=== PATIENT | female | born 1965 | race Two or more races ===

== ENCOUNTER 2018-03-22 09:35 | Inpatient (IN) | payer MEDICAID ==
[~2018-03-22] VITALS: Ht 144.8 cm; Wt 72.3 kg
[2018-03-22 09:44] VITALS: Ht 144.8 cm; Wt 72.3 kg
[2018-03-22 10:14] LABS: CALCIUM 9.6 mg/dL (8.5-10.1); CARBON DIOXIDE 25.7 mmol/L (21-32); CHLORIDE SERUM 101 mmol/L (98-107); CREATININE SERUM 0.7 mg/dL (0.6-1.0); GFR1 > 60 mL/min; GLUCOSE SERUM 130 mg/dL (74-106); POTASSIUM SERUM 3.7 mmol/L (3.5-5.1); SODIUM SERUM 138 mmol/L (136-145)
[2018-03-22 10:18] LABS: ALKALINE PHOSPHATASE 127 U/L (46-116); ALT/SGPT 46 U/L (14-59); AMYLASE 57 U/L (25-115); AST/SGOT 93 U/L (15-37); BILIRUBIN TOTAL 0.8 mg/dL (0.20-1.00); HDL CHOLESTEROL 49 mg/dL (40-60); LIPASE 126 IU/L (73-393)
[2018-03-22 10:21] LABS: CHOLESTEROL 211 mg/dL (<200)
[2018-03-22 10:23] LABS: BASOPHIL % 0.3 % (0-2); PLATELET COUNT 330 x10^3mcL (130-400); RED CELL DISTRIBUTION WIDTH 13.3 % (11.5-14.5)
[2018-03-22 10:43] LABS: UA SPECIFIC GRAVITY 1.025 (1.005-1.035); microscopic required? YES; urine erythrocyte 2+ (NEGATIVE)
[2018-03-22 13:38] LABS: MAGNESIUM 1.9 mg/dL (1.8-2.4); PHOSPHOROUS 4.3 mg/dL (2.5-4.9)
[2018-03-22 13:44] LABS: CHOLESTEROL/HDL RATIO 4.3
[2018-03-22 13:48] LABS: FREE T4 1.21 ng/dL (0.76-1.46); FREE THYROXINE INDEX 3.4 ug/dL (1.4-4.5)
[2018-03-22 13:56] VITALS: BP 114/66
[2018-03-22 14:07] LABS: T3 TOTAL 1.03 ng/mL
[2018-03-22 18:30] LABS: AMPHETAMINE QUAL UR NONE DETECTED (See below)
[2018-03-22 21:27] VITALS: BP 124/78
[2018-03-23 06:06] VITALS: BP 110/73
[2018-03-23 07:28] LABS: BASOPHIL % 0.9 % (0-2); CALCIUM 8.4 mg/dL (8.5-10.1); CARBON DIOXIDE 26.8 mmol/L (21-32); CHLORIDE SERUM 108 mmol/L (98-107); CREATININE SERUM 0.6 mg/dL (0.6-1.0); GFR1 > 60 mL/min; GLUCOSE SERUM 113 mg/dL (74-106); PHOSPHOROUS 3.4 mg/dL (2.5-4.9); PLATELET COUNT 275 x10^3mcL (130-400); RED CELL DISTRIBUTION WIDTH 13.6 % (11.5-14.5); SODIUM SERUM 141 mmol/L (136-145)
[2018-03-23 09:23] VITALS: BP 133/74
[2018-03-23 13:45] VITALS: BP 132/90
[2018-03-23 16:15] VITALS: BP 132/90
== END 2018-03-23 17:10 | disposition home or self-care (01) ==
LOC: ED 09:35 → DU 12:29
PROVIDERS: Emergency Medicine; Family Medicine
DX: K80.20 Calculus of gallbladder without cholecystitis without obstruction (principal); N17.0 Acute kidney failure with tubular necrosis; E83.51 Hypocalcemia; K76.0 Fatty (change of) liver, not elsewhere classified; R74.0 Nonspecific elevation of levels of transaminase and lactic acid dehydrogenase [LDH]; R80.9 Proteinuria, unspecified; E78.1 Pure hyperglyceridemia; E78.5 Hyperlipidemia, unspecified; E78.00 Pure hypercholesterolemia, unspecified; Z68.28 Body mass index [BMI] 28.0-28.9, adult
CPT/HCPCS: 78226; 83880; 84439; A9537; J0696; J1885; J3010; J3490; J7030; Q0092

== ENCOUNTER 2019-03-29 21:03 | Inpatient (IN) | payer SELFPAY ==
[~2019-03-29] VITALS: Ht 144.8 cm; Wt 71.7 kg
[2019-03-29 21:06] VITALS: Ht 144.8 cm; Wt 71.7 kg
--- NOTE | 2019-03-29 21:30 | NUR ---
PT LYING IN BED, AAOX4 WITH C/O RUQ ABD PAIN, 6/10, X 2 DAYS WITH NAUSEA. PT DENIES ANY V/D/C, RESP ILLNESS, FEVERS, OR URINARY PROBLEMS AT THIS TIME. PER FAMILY AT BEDSIDE, PT HAS A HX OF GALLSTONES AND PT STATES THAT THIS EPISODE IS SIMILAR TO PREVIOUS EPISODES. NO SIGNS OF DISTRESS AT THIS TIME.
--- NOTE | 2019-03-29 22:36 | NUR ---
US TECH AT BEDSIDE FOR EXAM.
[2019-03-29 22:38] LABS: BASOPHIL % 0.7 % (0-2); PLATELET COUNT 327 x10^3mcL (130-400); RED CELL DISTRIBUTION WIDTH 13.4 % (11.5-14.5)
[2019-03-29 22:44] LABS: CALCIUM 9.7 mg/dL (8.5-10.1); CARBON DIOXIDE 26.6 mmol/L (21-32); CHLORIDE SERUM 105 mmol/L (98-107); CREATININE SERUM 0.6 mg/dL (0.6-1.0); GFR1 > 60 mL/min; GLUCOSE SERUM 133 mg/dL (74-106); POTASSIUM SERUM 4.2 mmol/L (3.5-5.1); SODIUM SERUM 142 mmol/L (136-145)
[2019-03-29 22:48] LABS: ALBUMIN 3.6 g/dL (3.4-5.0); ALKALINE PHOSPHATASE 168 U/L (46-116); ALT/SGPT 339 U/L (14-59); AST/SGOT 426 U/L (15-37); BILIRUBIN TOTAL 0.7 mg/dL (0.20-1.00); LIPASE 1166 IU/L (73-393); TOTAL PROTEIN, SERUM 8.2 g/dL (6.4-8.2)
--- NOTE | 2019-03-29 23:30 | NUR ---
PT RESTING IN BED WITH FAMILY AT BEDSIDE.
--- NOTE | 2019-03-29 23:44 | NUR ---
REPORT GIVEN TO CHELI BRASHER.
--- NOTE | 2019-03-29 23:55 | NUR ---
REPORT RECEIVED FROM ALEXA BRASHER THAT PATIENT IS JUST WAITING ON ADMITS ORDER. REPORT WAS ALREADY GIVEN
--- NOTE | 2019-03-30 00:21 | NUR ---
PT TRANSFERED TO [facility] VIA WHEELCHAIR BY JUDY MAHMOOD. PT IN NAD
[2019-03-30 00:35] VITALS: BP 132/65
[2019-03-30 00:38] LABS: CHOLESTEROL/HDL RATIO 4.5; MAGNESIUM 2.1 mg/dL (1.8-2.4); PHOSPHOROUS 3.9 mg/dL (2.5-4.9)
--- NOTE | 2019-03-30 00:43 | NUR ---
RECEIVED FROM ER TRANSPORTED VIA WHEELCHAIR, ACCOMPANIED BY HER DAUGHTER. PT AWAKE AND ALERT, ORIENTED TO NAME, PLACE, TIME AND SITUATION. BREATHING EVEN AND UNLABORED ON ROOM AIR. SALINE LOCK TO LEFT AC, FLUSHED WELL. STATED SOUGHT ADMISSION DUE TO ABD PAIN AND NAUSEA X 2 DAYS. DENIES HAVING NAUSEA OR ABD PAIN AT THIS TIME. ADMISSION HISTORY AND ASSESSMENT DONE. ENDORSED TO NURSE DUTTON
[2019-03-30 00:45] LABS: FREE T4 1.08 ng/dL (0.76-1.46); FREE THYROXINE INDEX 2.7 ug/dL (1.4-4.5); T3 TOTAL 1.17 ng/mL; T4(THYROXINE) 7.7 ug/dL (4.7-13.3)
--- NOTE | 2019-03-30 01:25 | NUR ---
PT ABLE TO AMBULATE TO BATHROOM WITH SLOW STEADY GAIT. URINE COLLECTED AND SENT TO LAB. PT IN NO ACUTE DISTRESS. DAUGHTER AT BEDSIDE. EVEN AND UNLABORED RESPIRATIONS ON RA. IV PATENT AND INTACT RUNNING FLUIDS PER EMAR. NPO EXCEPT MEDS EXPLAINED TO PT. DENIES ANY PAIN AT THIS TIME. BED IN LOWEST POSITION. SIDE RAILS UPX2. CALL LIGHT WITHIN REACH. WILL CONTINUE TO MONITOR.
[2019-03-30 01:56] LABS: microscopic required? YES; urine erythrocyte NEGATIVE (NEGATIVE)
[2019-03-30 02:07] LABS: AMPHETAMINE QUAL UR NONE DETECTED (See below)
[2019-03-30 05:56] VITALS: BP 117/52
--- NOTE | 2019-03-30 06:23 | NUR ---
PT SLEPT COMFORTABLY IN INTERVALS THROUGHOUT THE SHIFT. DAUGHTER AT BEDSIDE. NO ACUTE CHANGES NOTED. ALL NEEDS TENDED TO AND MET. ALL SCHEDULED MEDICATIONS GIVEN. PT KEPT NPO EXCEPT MEDS. NO C/O OF PAIN THROUGHOUT THE SHIFT. IV PATENT AND INTACT RUNNING FLUIDS PER EMAR. BED IN LOWEST POSITION. SIDE RAILS UPX2. CALL LIGHT WITHIN REACH. WILL ENDORSE TO ONCOMING SHIFT.
[2019-03-30 06:44] LABS: BASOPHIL % 1.4 % (0-2); PLATELET COUNT 312 x10^3mcL (130-400); RED CELL DISTRIBUTION WIDTH 13.7 % (11.5-14.5)
[2019-03-30 07:00] LABS: CALCIUM 8.8 mg/dL (8.5-10.1); CARBON DIOXIDE 23.8 mmol/L (21-32); CHLORIDE SERUM 109 mmol/L (98-107); CREATININE SERUM 0.6 mg/dL (0.6-1.0); GFR1 > 60 mL/min; GLUCOSE SERUM 111 mg/dL (74-106); POTASSIUM SERUM 3.7 mmol/L (3.5-5.1); SODIUM SERUM 144 mmol/L (136-145)
--- NOTE | 2019-03-30 07:15 | NUR ---
REPORT TAKEN FROM ACADEMIC ADVISOR NURSE AT THE BEDSIDE, PT AWAKE AND ALERT, WITH FAMILY AT THE BEDSIDE. DENIED PAIN, IN NAD, WILL CONTINUE TO MONITOR.
[2019-03-30 09:01] VITALS: BP 122/81
[2019-03-30 14:45] LABS: ALBUMIN 3.4 g/dL (3.4-5.0); BILIRUBIN DIRECT 0.67 mg/dL (0.0-0.2); BILIRUBIN TOTAL 0.8 mg/dL (0.20-1.00); TOTAL PROTEIN, SERUM 7.4 g/dL (6.4-8.2)
--- NOTE | 2019-03-30 15:19 | NUR ---
Discount pharmacy card and list to low cost medical clinics given to patient by Blayne.
[2019-03-30 17:03] VITALS: BP 137/73
--- NOTE | 2019-03-30 18:38 | NUR ---
PT TOLERATED CARE WELL, IN NAD, WILL REPORT TO WAREHOUSE AND RECEIVING SUPERVISOR NURSE AND ENDORSE CARE
--- NOTE | 2019-03-30 19:09 | NUR ---
REPORT GIVEN TO CAR RIDER NURSE, CARE ENDORSED
[2019-03-30 19:15] VITALS: BP 138/83
--- NOTE | 2019-03-30 20:10 | NUR ---
PT CURRENTLY RESTING IN BED, NO ACUTE DISTRESS. A/O X4. NO TELE, MED/SURG. DENIES CHEST PAIN. PULSES PALPABLE IN ALL EXTREMITIES, NO EDEMA NOTED. LUNG SOUNDS CTA BILATERALLY, DENIES SOB. BOWEL SOUNDS ACTIVE, LAST BM 03/29/19. VOIDING WELL. AMBULATORY. SKIN INTACT. DENIES PAIN AT THIS TIME. IV PATENT AND INTACT. BED IN LOWEST POSITION, SIDE RAILS UP X2, CALL LIGHT WITHIN REACH. WILL CONTINUE TO MONITOR.
--- NOTE | 2019-03-31 00:24 | NUR ---
PT CURRENTLY RESTING IN BED, NO ACUTE DISTRESS. WILL CONTINUE TO MONITOR.
[2019-03-31 05:54] VITALS: BP 126/81
--- NOTE | 2019-03-31 06:02 | NUR ---
PT SLEPT PERIODICALLY THROUGHOUT NIGHT, NO ACUTE DISTRESS. ALL NEEDS MET AND ATTENDED TO. NO SIGNIFICANT CHANGES. IV PATENT AND INTACT. BED IN LOWEST POSITION, SIDE RAILS UP X2, CALL LIGHT WITHIN REACH. WILL ENDORSE CARE TO ONCOMING NURSE.
[2019-03-31 06:19] LABS: BASOPHIL % 1.5 % (0-2); PLATELET COUNT 316 x10^3mcL (130-400); RED CELL DISTRIBUTION WIDTH 13.5 % (11.5-14.5)
[2019-03-31 06:33] LABS: CALCIUM 8.4 mg/dL (8.5-10.1); CARBON DIOXIDE 26.2 mmol/L (21-32); CHLORIDE SERUM 104 mmol/L (98-107); CREATININE SERUM 0.6 mg/dL (0.6-1.0); GFR1 > 60 mL/min; GLUCOSE SERUM 92 mg/dL (74-106); MAGNESIUM 1.9 mg/dL (1.8-2.4); PHOSPHOROUS 3.8 mg/dL (2.5-4.9); POTASSIUM SERUM 3.8 mmol/L (3.5-5.1); SODIUM SERUM 141 mmol/L (136-145)
--- NOTE | 2019-03-31 07:31 | NUR ---
ASSUMED CARE OF PATIENT. SEEN AWAKE ALERT THIS MORNING. NO COMPLAINTS OF PAIN OR DISCOMFORT. NO APPARENT DISTRESS NOTED. IV ON LAC PATENT AND INFUSING NS AT 125 ML/HR. WILL CONTINUE TO MONITOR.
[2019-03-31 08:39] VITALS: BP 126/92
--- NOTE | 2019-03-31 08:45 | NUR ---
PATIENT CURRENTLY DENYING ANY ABDOMINAL PAIN OR NAUSEA. DAUGHTER REPORTS HER MOTHER HAD A "HOME REMEDY" AND HAS NOT HAD ANY ABDOMINAL PAIN SINCE. STATES DOCTOR HAD SPOKEN TO THEM AND REPORTS STONE MAY HAVE PASSED.
--- NOTE | 2019-03-31 11:16 | NUR ---
PATIENT SEEN RESTING IN BED WITH NO COMPLAINTS OF PAIN OR DISCOMFORT. NO NEW ISSUES.
--- NOTE | 2019-03-31 13:18 | NUR ---
Initial Nutrition Assessment: 236/B BABAK GOODMAN IA HR Dx: Suicidal ideation PMHx: Osteoarthritis PSHx: None Labs: (03/30) AST 860H, ALT 620H, ALK P 169H, lipase: (03/29) 1166H, (03/30) 301 Meds: Colace, norco, zofran Diet: NPO (Pancreatitis), (03/23-03/29) - regular PO Intake: NPO, (03/23-): not documented Ht: 144.78 cm (57") Wt: 71.6 kg (158#) BMI: 34.2 kg/m2 Bed scale: 156.6# IBW: 85# (39 kg) %IBW: 185 UBW: 156-158# Age: 54/F Food Allergies: NKFA Skin: intact Jimbo: 22 Edema: none GI: Last BM: 03/29 Trigger: admitted w/ risk diagnosis Per H&P, Pt is a 54 yoF with no significant PMH who came with cc of abdominal pain since 3 days. RDN Visit (03/31): Patient was alert and oriented and was saying that she has been NPO since yesterday. Per RN Minal, pt. is having an ERCP with Dr. Monte today. Per progress note (03/30), pt. has Acute Pancreatitis 2/2 Possible Cholelitiasis, surgery an GI consult are pending. Problem with: N/V/D/C: no Problems with: Chewing/Swallowing: none Current appetite: good Recent wt change: none %wt change: n/a Vitamin/Supplement use: none Special diet at home: regular Physical activity: none Nutrition education given: not provided at this time. Patient did not have any diet/nutrition related questions. Food-drug interactions: Colace- high fiber w/0916-1797 ml fluids Education given: no Estimated Nutritional Needs Based on current body weight 71.6 kg Energy: 3854-5137 kcal/d (25-30 kcal/kg) Protein: 72-86 g/d (1.0-1.2 g/kg)- preserve LBM Fluid: 8489-7764 ml/d (1 ml/kcal) or per doctor Nutrition Diagnosis 1. Inadequate oral intake related to pancreatitis, planned procedures as evidenced by NPO diet order. Intervention 1. Recommend continuing regular diet post- ERCP. Monitor/Evaluate Goal: PO intake at least 75% of estimated needs Monitor: PO intake, Labs, GI function F/U in 2-3 days as moderate risk
--- NOTE | 2019-03-31 13:19 | NUR ---
1. Recommend continuing regular diet post- ERCP.
--- NOTE | 2019-03-31 15:23 | NUR ---
PATIENT NOTIFIED OF NPO STATUS AFTER MIDNIGHT.
[2019-03-31 16:50] VITALS: BP 129/80
--- NOTE | 2019-03-31 18:04 | NUR ---
UTILIZED TRANSLATION SERVICES TO OBTAIN CONSENT FOR DONNELL OLVERA TOMORROW. ALL QUESTIONS ANSWERED FOR PATIENT AND FAMILY.
--- NOTE | 2019-03-31 18:47 | NUR ---
PATIENT SEEN IN BED WITH NO COMPLAINTS OF PAIN OR DISCOMFORT. NO APPARENT DISTRESS NOTED. IV TO LAC PATENT AND INFUSING NS AT 70ML/HR. WILL ENDORSE TO ONCOMING RN.
--- NOTE | 2019-03-31 19:36 | NUR ---
ALER AND VERBALLY RESPONISVE. ABLE TO MAKE NEEDS KNOWN. SKIN WARM AND DRY TO TOUCH. RESPIRATION EVEN AND UNLABORED. IV ACCESS AT THE LAC G#22INTACT AND PATENT, WITH IVF NS AT 70ML/HR INFUSING WELL. NO REDNESS /SWELLING NOTED AT THE IV SITE. PLACED CALL LIGHT WITHIN REACH. WILL CONTINUE TO MONITOR.
[2019-03-31 21:51] VITALS: BP 144/83
--- NOTE | 2019-04-01 | NUR ---
INSTRUCTED PT TO BE NPO AFTER MDINIGHT FOR DONNELL OLVERA IN AM, PT VERBALIZED UNDERSTANDING, COOPERATIVE WITH PLAN OF CARE. DENIES ANY PAIN/DISCOMFORT AT THIS TIME.
--- NOTE | 2019-04-01 05:18 | NUR ---
MAINTAINED ON NPO FOR EXPLOR LAP TODAY. CHG BATH DONE. IVF NS AT 70CC/HR VIA PERIPHERAL LINE AT THE LAC TOLERATING WELL. KEPT CLEAN AND DRY. ALL NEEDS ATTENDED.
[2019-04-01 06:33] VITALS: BP 145/81
--- NOTE | 2019-04-01 07:00 | NUR ---
RECIEVED PT RESTING IN BED WITHH NO C/O PAIN, DISTRESS, OR SOB. PT A/O X4 WITH NO SHIN OR DIZZINESS. PT NPO AND WAITING FOR SURGERY THIS MORNING. CONSENT SIGNED AND CHECK LIST DONE. IV INTACT AND PATENT TO LAC 20G RUNNING 70ML/HR NS. NO REDNESS OR INFLAMMATION NOTED. SAFETY PRECAUTIONS IN PLACE, CALL LIGHT WITHIN REACH, WILL MONITOR.
[2019-04-01 07:12] LABS: BASOPHIL % 0.8 % (0-2); PLATELET COUNT 323 x10^3mcL (130-400); RED CELL DISTRIBUTION WIDTH 13.6 % (11.5-14.5)
[2019-04-01 07:56] LABS: PHOSPHOROUS 3.7 mg/dL (2.5-4.9)
[2019-04-01 08:04] LABS: ALBUMIN 3.5 g/dL (3.4-5.0); BILIRUBIN DIRECT 0.18 mg/dL (0.0-0.2); BILIRUBIN TOTAL 0.55 mg/dL (0.20-1.00); TOTAL PROTEIN, SERUM 8.1 g/dL (6.4-8.2)
[2019-04-01 08:36] LABS: ALBUMIN 3.5 g/dL (3.4-5.0); ALKALINE PHOSPHATASE 174 U/L (46-116); ALT/SGPT 328 U/L (14-59); AST/SGOT 103 U/L (15-37); CALCIUM 8.4 mg/dL (8.5-10.1); CARBON DIOXIDE 25.9 mmol/L (21-32); CHLORIDE SERUM 107 mmol/L (98-107); CREATININE SERUM 0.6 mg/dL (0.6-1.0); GFR1 > 60 mL/min; GLUCOSE SERUM 105 mg/dL (74-106); LIPASE 193 IU/L (73-393); POTASSIUM SERUM 3.5 mmol/L (3.5-5.1); SODIUM SERUM 142 mmol/L (136-145); TOTAL PROTEIN, SERUM 8.1 g/dL (6.4-8.2)
[2019-04-01 09:05] VITALS: BP 142/86
--- NOTE | 2019-04-01 09:10 | NUR ---
PT TAKEN TO ER FOR SURGERY VIA TY, ACCOMPANIED BY ANSHU EUBANKS. ALL CONSENTS SIGNED AND CHECKLIST DONE.
--- NOTE | 2019-04-01 12:25 | NUR ---
PT BACK FROM SURGERTY. VS WNL BP 119/68, HR 60, RR 17, T 97.6, NO DISTRESS NOTED. ABD INCISIONS X4 COVERED WITH BANDAIDS, CDI. PT ASLEEP RIGHT NOW. WILL CONTINUE TO MONITOR.
--- NOTE | 2019-04-01 14:16 | NUR ---
PT STABLE WITH NO C/O PAIN, DISTRESS, OR SOB. FAMILY AT BEDSIDE. SAFETY PRECAUTIONS IN PLACE, CALL LIGHT WITHIN REACH, WILL MONITOR.
--- NOTE | 2019-04-01 15:12 | NUR ---
PT C/O 03/25 ABD PAIN, MEDICATED WITH MORPHINE PER EMAR, WILL REASSESS.
[2019-04-01 17:30] VITALS: BP 142/75
--- NOTE | 2019-04-01 18:17 | NUR ---
PT STABLE AT THIS TIME WITH NO C/O PAIN, DISTRESS, OR SOB. ALL CARES TOLERATED WELL, VS WNL. IV INTACT AND PATENT RUNNING NS AT 50ML/HR. X4 ABDOMINAL SURGICAL INCISIONS COVERED WITH BANDAIDS, CDI. SAFETY PRECAUTIONS IN PLACE, CALL LIGHT WITHIN REACH, WILL ENDORSE CARE TO NIGHT NURSE.
--- NOTE | 2019-04-01 19:48 | NUR ---
AWAKE AND VERBALLY RESPONISVE. ABLE TO MAKE NEEDS KNOWN . SKIN WARM AND DRY TO TOUCH. RESPIRATION EVEN AND UNLABORED. ABDOMINAL INCISSION X4 COVERED WITH BANDAIDS. PAIN LEVEL 2/10, BEARABLE AT THIS TIME. CALL LIGHT WITHIN REACH, INSTRUCTED TO CALL FOR ANY ASSISTANCE NEEDED AND VERBALIZED UNDERSTANDING.
--- NOTE | 2019-04-01 21:06 | NUR ---
C/O SEVERE POST OP PAIN, ON SCALE 8/10, INSTRUCTED TO DO FREQUENT DEEP BREATING AND TO DO INCENTIVE SPIROMETER X10 Q HR WHILE AWARKE. MORPHINE 2MG IVP GIVEN PRN MEDICATION.
[2019-04-01 22:00] VITALS: BP 108/68
--- NOTE | 2019-04-02 00:01 | NUR ---
EYES CLOSED, NO FACIAL GRIMACING. APPARENTLY ASLEEP SOINDLY BUT RESPONSIVE TO TACTILE/VERBAL STIMULI. CALL LIGHT WITHIN REACH.
--- NOTE | 2019-04-02 05:23 | NUR ---
STILL NO BM AT THIS TIME. ENCOURAGE AMBULATION AND TO DO BREATHING EXERCISES AND USING THE INCENTIVE SPIROMETER. PATIENT VERBALIZED UNDERSTANDING.
[2019-04-02 05:50] VITALS: BP 125/77
--- NOTE | 2019-04-02 07:30 | NUR ---
PATIENT IS RESTING IN BED, FAMILY A BEDSIDE. PATIENT DENIES PAIN. NO ACUTE DISTRESS NOTED, PATIENT DENIES SOB, ON ROOM AIR. INCENTIVE SPIROMETER AT BEDSIDE, PATIENT INSTRUCTED TO DO Q1H AT LEAST 10XS, PATIENT AWARE SHE MAY TAKE BREAKS IF NEEDED. PATIENT STATES SHES BEEN BURPING & PASSING GAS, NO BM NOTED TODAY. EDUCATED PATIENT TO AMBULATE HALLWAYS TO PROMOTE PERSTALSIS, PATIENT VERBALIZES UNDERTANDING. ABDOMINAL INCISION X4, COVERED WITH BAND AID CDI. NS IV INFUSING TO LAC AT 50ML/HR, PATENT& INTACT, NO S/S OF INFILTRATION. CALL LIGHT WITHIN REACH, BED IN LOW POSITION. WILL CONTINUE TO MONITOR.
[2019-04-02 07:32] LABS: ALBUMIN 3.3 g/dL (3.4-5.0); BILIRUBIN DIRECT 0.2 mg/dL (0.0-0.2); BILIRUBIN TOTAL 0.6 mg/dL (0.20-1.00); TOTAL PROTEIN, SERUM 7.5 g/dL (6.4-8.2)
[2019-04-02 07:37] LABS: CALCIUM 8.1 mg/dL (8.5-10.1); CARBON DIOXIDE 23.5 mmol/L (21-32); CHLORIDE SERUM 106 mmol/L (98-107); CREATININE SERUM 0.6 mg/dL (0.6-1.0); GFR1 > 60 mL/min; GLUCOSE SERUM 123 mg/dL (74-106); PHOSPHOROUS 3.9 mg/dL (2.5-4.9); POTASSIUM SERUM 3.5 mmol/L (3.5-5.1); SODIUM SERUM 142 mmol/L (136-145)
[2019-04-02 07:44] LABS: BASOPHIL % 0.4 % (0-2); PLATELET COUNT 298 x10^3mcL (130-400); RED CELL DISTRIBUTION WIDTH 13.6 % (11.5-14.5)
[2019-04-02 08:56] VITALS: BP 109/72
--- NOTE | 2019-04-02 09:55 | NUR ---
PATIENT IS UP & AMBULATING HALLWAYS, STEADY GAIT NOTED. FAMILY AT SIDE. NO ACUTE DISTRESS NOTED, WILL CONTIUE TO MONITOR FOR CHANGES.
[2019-04-02 12:54] VITALS: BP 109/72
--- NOTE | 2019-04-02 15:00 | NUR ---
PATIENT WAS DISCHARGE HOME, PATIENT TAKEN DOWN VIA WHEELCHAIR BY PSYCHIC READER. PATIENT RECEIVED COPY OF D/C INSTRUCTIONS, PATIENT UNDERSTANDS & AGREES WITH D/C INSTRUCTIONS & PLAN OF CARE, INCLUDING MEDICATIONS & F/U WITH PCP & SURGEON. PROVIDED PATIENT WITH DRESSING CHANGE, EDUCATED PATIENT ON WOUND CARE. PHOTOS TAKEN AND PLACED IN CHART. ALL QUESTIONS AND CONCERNS ADDRESSED. ARMBANDS REMOVED. IV TO LAC REMOVED, CATH INTACT.
== END 2019-04-02 14:59 | disposition home or self-care (01) | DRG 417 ==
LOC: ED 21:03 → MU 23:20
PROVIDERS: Emergency Medicine; Internal Medicine Gastroenterology; Surgery; ADMIT Internal Medicine
PROC: 0FT44ZZ Resection of Gallbladder, Percutaneous Endoscopic Approach (ICD-10-PCS; principal; 2019-04-01 09:00)
DX: K80.70 Calculus of gallbladder and bile duct without cholecystitis without obstruction (principal); K85.10 Biliary acute pancreatitis without necrosis or infection; N39.0 Urinary tract infection, site not specified; M19.90 Unspecified osteoarthritis, unspecified site; Z83.3 Family history of diabetes mellitus; Z80.0 Family history of malignant neoplasm of digestive organs; E66.9 Obesity, unspecified; Z68.27 Body mass index [BMI] 27.0-27.9, adult; Z71.3 Dietary counseling and surveillance; K66.0 Peritoneal adhesions (postprocedural) (postinfection)
CPT/HCPCS: 84439; 94150; G0378; J0330; J0690; J1170; J2250; J2270; J2405; J2704; J2710; J3010; J3490; J7030; J7120; Q0092